=== PATIENT | female | born 1960 | race Caucasian/White ===

== ENCOUNTER → 2021-11-19 | Outpatient (CLI) | payer BC | LOC: LAB 14:15 | PROVIDERS: ATTEND Nurse Practitioner Family | DX: R51.9 Headache, unspecified (principal) | CPT/HCPCS: 36415; 85651 ==

== ENCOUNTER → 2021-12-03 | Outpatient (CLI) | payer BC ==
[~2021-12-03] MED LIST: ASPI-630 PO; CITA20TA6 PO; HYDR30SU4 RC; IOHEXOL 300 MG/ML 100ML VIAL. IV ONE; LANS30CA PO; POLY17PO29 PO; SIMV80TA17 PO
--- NOTE | 2021-12-03 10:30 | KCIC ---
CTA HEAD History: Migraine w/o aura, family hx. aneurysm, hx. stroke 2016. Rt. side affected by stroke. Technique: Noncontrast CT of the head and followed by contrast enhanced CT angiogram of the head. Mul tiplanar reconstruction images to include MIP and 3-D reconstruction images are submitted. Any determ ination of stenosis is based on NASCET criteria. Comparison: None Findings: Noncontrast CT head: No intracranial hemorrhage. No mass effect. No hydrocephalus. Extra-axial spaces are unremarkable. I becky orbits are unremarkable. Bilateral maxillary sinus mucoperiosteal thickening with postsurgical changes of the medial maxillary chavis. Angiogram head: ICA: No stenosis, occlusion or aneurysm. MCA: No stenosis, occlusion or aneurysm. GER: No stenosis, occlusion or aneurysm. RESEARCH AND DEVELOPMENT RESEARCHER: No stenosis, occlusion or aneurysm. Basilar artery: No stenosis, occlusion or aneurysm. Distal vertebral arteries: No stenosis, occlusion or aneurysm. Impression: 1. No acute intracranial findings. 2. No significant arterial stenosis, occlusion or aneurysm within the head. 3. 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 Exposure: One or more of the following individualized dose reduction techniques were utilized for thi s examination: 1. Automated exposure control 2. Adjustment of the mA and/or kV according to patient size 3. Use of iterative reconstruction technique. Electronically signed by: Abundio Gallegos MD (12/03/2021 10:28 AM) [facility]
--- NOTE | 2021-12-03 10:36 | KCIC ---
EXAM: Brain MRI without contrast. HISTORY: Migraine with aura. TECHNIQUE: Multiplanar, multisequence magnetic resonance imaging of the brain was performed without c ontrast. COMPARISON: CT angiogram dated 12/03/2021. FINDINGS: There is no restricted diffusion to suggest acute or subacute infarction. There is no susce ptibility effect to suggest hemorrhage. There is no mass effect or midline shift. There is no hydroce phalus. There are scattered foci of T2/FLAIR hyperintensity within the cerebral white matter and danny, a nons pecific finding. There is paranasal sinus mucosal thickening. There are maxillary sinus mucous retent ion cyst. There is fluid within the left mastoid air cells. There are normal flow voids within the cerebral vessels. There is no suspicious calvarial lesion. The re is a tiny focus of T2 hyperintensity within the right aspect of the cervical spinal cord at C1. Th is is not seen on coronal images and is likely artifactual. IMPRESSION: 1. Scattered foci of signal change within the cerebral white matter and danny, a nonspecific finding w hich is most commonly due to chronic small vessel disease in patients of this age. The possibility of superimposed changes due to chronic migraine headaches can also be considered given the clinical his tory. 2. Paranasal sinus disease and left mastoid fluid. Electronically signed by: Amalia Tariq MD (12/03/2021 10:33 AM) [id number]
== END ==
LOC: KCIC CT 08:47
PROVIDERS: ATTEND Nurse Practitioner Family
DX: G43.009 Migraine without aura, not intractable, without status migrainosus (principal); R90.82 White matter disease, unspecified; J34.89 Other specified disorders of nose and nasal sinuses; J32.0 Chronic maxillary sinusitis; Z82.49 Family history of ischemic heart disease and other diseases of the circulatory system
CPT/HCPCS: 70496; 70551; Q9967